=== PATIENT | male | born 1950 | race African-American/Black ===

== ENCOUNTER 2017-03-18 17:10 | Emergency (ER) | payer MEDICARE ==
[~2017-03-18] VITALS: Ht 185.4 cm; Wt 90.7 kg
--- NOTE | 2017-03-18 17:26 | NUR ---
PATIENT BROUGHT IN AT 1711 IN FULL ARREST. PT ALREADY INTUBATED. CPR AND BAGGING CONTINUED WITH DOCTOR IN THE ROOM. CODE CALLED AT 1725.
== END 2017-03-18 17:24 | disposition expired ==
LOC: ED 17:10
DX: I46.9 Cardiac arrest, cause unspecified (principal)
CPT/HCPCS: J0171; J0461